=== PATIENT | female | born 1950 | race Caucasian/White ===

== ENCOUNTER 2016-12-07 13:38 | Outpatient (CLI) | payer OTHER | END 2016-12-07 19:56 | disposition home or self-care (01) | LOC: SRD 13:38 | PROVIDERS: ATTEND Family Medicine | DX: M19.071 Primary osteoarthritis, right ankle and foot (principal); M77.31 Calcaneal spur, right foot; M21.41 Flat foot [pes planus] (acquired), right foot ==

== ENCOUNTER 2016-12-22 11:33 | Outpatient (CLI) | payer OTHER | END 2016-12-22 18:18 | disposition home or self-care (01) | LOC: SRD 11:33 | PROVIDERS: ATTEND Family Medicine | DX: M25.562 Pain in left knee (principal); Z96.652 Presence of left artificial knee joint | CPT/HCPCS: 73564 ==

== ENCOUNTER 2017-01-05 11:30 | Outpatient (CLI) | payer OTHER | END 2017-01-05 18:27 | disposition home or self-care (01) | LOC: SRD 11:30 | PROVIDERS: ATTEND Family Medicine | DX: M47.896 Other spondylosis, lumbar region (principal); M16.12 Unilateral primary osteoarthritis, left hip; M54.32 Sciatica, left side; I70.0 Atherosclerosis of aorta | CPT/HCPCS: 72110; 73521 ==

== ENCOUNTER → 2018-12-01 | Outpatient (CLI) | payer OTHER | END | disposition home or self-care (01) | LOC: SRD 15:34 | PROVIDERS: ATTEND Family Medicine | DX: M25.551 Pain in right hip (principal); M47.816 Spondylosis without myelopathy or radiculopathy, lumbar region | CPT/HCPCS: 73502 ==